=== PATIENT | male | born 1990 | race Hispanic/Latino ===

== ENCOUNTER 2019-01-29 06:12 | Emergency (ER) | payer OTHER ==
[2019-01-29] MEDS ORDERED: ONDANSETRON HCL 4 MG/2 ML VIAL ONE (06:39)
[2019-01-29] MEDS ORDERED: SODIUM CHLORIDE 0.9% 1000ML 1,000 ML IV ONE (06:39)
[2019-01-29] MEDS ORDERED: LEVOFLOXACIN 500 MG TABLET ONE (07:12)
== END 2019-01-29 08:06 | disposition home or self-care (01) ==
LOC: EDH 06:12
DX: A09 Infectious gastroenteritis and colitis, unspecified (principal); E86.0 Dehydration; Z87.891 Personal history of nicotine dependence
CPT/HCPCS: 96361; 96374; 99284; J2405; J7030